=== PATIENT | female | born 1965 | race Two or more races ===

== ENCOUNTER 2022-05-07 22:40 | Emergency (ER) | payer SELFPAY ==
[~2022-05-07] VITALS: Ht 157.5 cm; Wt 54.4 kg
--- NOTE | 2022-05-07 23:30 | NUR ---
[address] [place] TO ER BED 15. SLEEPING BUT ARROUSABLE. NOT IN RESP DISTRESS, BREATHING EVEN AND UNLABORED. PT WAS FOUND BY A PASSERBY SLEEPING ON THE SIDE WALK. PER DAIRY FEED MIXING OPERATOR. PT ADMITTED TO DRINKING. PT WAS ABLE TO MOVE ALL EXTREMETIES. NO NOTED VISUAL INJURIES. AWAITING MD FOR EVAL
[2022-05-08 00:26] LABS: BASOPHILS % (AUTO) 0.5 % (0.0-2.0); EOSINOPHILS % (AUTO) 3.7 % (0.0-6.0); HEMATOCRIT 38 % (33-45); HEMOGLOBIN 12.8 g/dL (11.5-14.8); LYMPHOCYTES # (AUTO) 3.8 K/uL (0.8-4.8); LYMPHOCYTES % (AUTO) 53.4 % (20.0-44.0); MEAN CORPUSCULAR HGB CONC 34 g/dl (31.0-36.0); MEAN CORPUSCULAR VOLUME 98 fL (82-100); MONOCYTES # (AUTO) 0.6 K/uL (0.1-1.30); MONOCYTES % (AUTO) 8.4 % (2.0-12.0); NEUTROPHILS # (AUTO) 2.4 K/uL (1.8-8.9); PLATELET COUNT (AUTO) 336 K/uL (150-450); RED BLOOD CELL COUNT(AUTO) 3.84 MIL/uL (4.0-5.2)
[2022-05-08 00:52] LABS: CALCIUM, SERUM 8.7 mg/dL (8.5-10.1); CREATININE 1.1 mg/dL (0.6-1.3); POTASSIUM 3.8 mmol/L (3.5-5.1)
[2022-05-08 00:57] LABS: ALBUMIN 3.5 g/dL (3.4-5.0); BILIRUBIN,DIRECT 0.1 mg/dL (0.0-0.2); BILIRUBIN,TOTAL 0.2 mg/dL (0.2-1.0); TOTAL PROTEIN, SERUM 7.5 g/dL (6.4-8.2)
--- NOTE | 2022-05-08 02:21 | NUR ---
PT UNABLE TO PROVIDE URINE AT THIS TIME
[2022-05-08 05:14] LABS: NEUTROPHILS % (MANUAL) 38 (42-76)
[2022-05-08 05:15] LABS: BASOPHILS % (MANUAL) 0 % (0.0-2.0); EOSINOPHILS % (MANUAL) 4 % (0-4); LYMPHOCYTES % (MANUAL) 45 % (16-48); MONOCYTES % (MANUAL) 13 % (0-11.0)
--- NOTE | 2022-05-08 06:06 | NUR ---
TRIED TO WAKE UP PT AND SHE IS ARROUSABLE. HOEWEVER SHE IS STILL DROWSY. PT ADMITTED TO DRINKING ALOT. DENIES SUICIDAL IDEATION. PER PT HER MOTHER RECENTLY . PT IS NOT READY TO BE DISCHARGED. MADE AWARE.
--- NOTE | 2022-05-08 08:31 | NUR ---
pt is awake. alert and oriented. ambulatory on steady gait. denies si nor hi. pt is cleared by md to be discahrge
[2022-05-08 08:32] VITALS: BP 117/77
[2022-05-08 09:05] LABS: BILIRUBIN,URINE NEGATIVE (NEGATIVE); COLOR,URINE YELLOW (YELLOW); LEUKOCYTE ESTERASE ,URINE MODERATE (NEGATIVE); NITRITE, URINE POSITIVE (NEGATIVE); PH,URINE 5.5 (5.0-8.0); PROTEIN,URINE NEGATIVE (NEGATIVE); UGLUCOSE NEGATIVE (NEGATIVE); UROBILINOGEN,URINE 0.2 EU/dL (0.2)
[2022-05-08 12:21] LABS: RBC,URINE 0-2 /HPF (0-2)
[2022-05-08 12:22] LABS: BACTERIA,URINE Many /HPF (None Seen)
== END 2022-05-08 08:33 | disposition home or self-care (01) ==
LOC: ER 22:54
DX: R41.82 Altered mental status, unspecified (principal); F10.129 Alcohol abuse with intoxication, unspecified; Y90.7 Blood alcohol level of 200-239 mg/100 ml
CPT/HCPCS: 36415; 80048-TC; 80076-TC; 81001; 85025-TC; 87086-TC; G0480